=== PATIENT | male | born 1975 | race Caucasian/White ===

== ENCOUNTER → 2024-12-20 | Outpatient (CLI) | payer BC ==
--- NOTE | 2024-12-20 11:48 | CT ---
EXAMINATION TYPE: CT soft tissue neck w con DATE OF EXAM: 12/20/2024 11:22 AM COMPARISON: None. 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 TECHNIQUE: Standard enhanced CT of the neck. Axial sections with coronal and sagittal reformats were obtained. Contrast used:100 ml mL of Isovue 300 with IV Contrast, (None if empty) Oral contrast used: (None if empty) CT DLP: 630 mGycm, Automated exposure control for dose reduction was used. FINDINGS: Brain: Visualized portions are grossly unremarkable. Orbits: Unremarkable Sinuses: Grossly unremarkable. Spaces of the neck: Clear and symmetric. Mild enlargement of the palatine tonsils. These are not sign ificantly asymmetric given limitations of CT. Musculoskeletal: No acute osseous pathology. Lymph nodes: Multiple nonenlarged lymph nodes are seen along both anterior chains of the neck which can be up to 1.5 cm in transverse dimension at the jugulodigastric lymph node currently the left is 1 2 mm in short axis. Vascular structures: Visualized major arteries are patent without evidence of aneurysm. Thoracic Inlet/airway: Airway is patent. The lung apices are clear. Soft tissues/Thyroid: Thyroid and remainder of the soft tissues are unremarkable. Other: none. IMPRESSION: The palatine tonsils are mildly enlarged not significantly asymmetric. No definite evidence for absce ss or significant abnormality. No evidence for lymphadenopathy. No mucosal mass. Consider further blanca luation with direct visualization [facility], , 12/20/2024 11:45 AM
== END | disposition home or self-care (01) ==
LOC: RADCTMAIN 10:47
PROVIDERS: ATTEND Otolaryngology
DX: J35.8 Other chronic diseases of tonsils and adenoids (principal)
CPT/HCPCS: 70491; Q9967